=== PATIENT | male | born 1985 ===

== ENCOUNTER 2020-05-23 09:11 | Inpatient (IN) | payer OTHER ==
[~2020-05-23] VITALS: Ht 185.4 cm; Wt 84.1 kg
[2020-05-23] MEDS ORDERED: 0.9% SODIUM CHLORIDE 10 ML SYRINGE IVP PRN (11:30)
[2020-05-23] MEDS ORDERED: ACETAMINOPHEN 325 MG TABLET PO PRN (11:30)
[2020-05-23] MEDS ORDERED: ONDANSETRON HCL 4 MG/2 ML VIAL IVP PRN (17:30)
[2020-05-23] MEDS ORDERED: MAGNESIUM HYDROXIDE SUSPENSION 30 ML UDCUP PO PRN (17:30)
[2020-05-23] MEDS ORDERED: BISACODYL 10 MG RECTAL RECTAL SUPPOSITORY PR PRN (17:30)
[2020-05-23 19:30] VITALS: BP 108/52
[2020-05-23 21:52] LABS: ANION GAP 12 mmol/L (8-16); BASOPHILS % (AUTO) 0.7 % (0.0-2.0); CALCIUM, TOTAL 8.8 mg/dL (8.8-10.5); CARBON DIOXIDE 24 mmol/L (22-29); CHLORIDE 106 mmol/L (98-107); CREATININE 0.77 mg/dL (0.60-1.30); EOSINOPHILS % (AUTO) 1.6 % (1.0-6.0); GLOMERULAR FILTR. RATE CALC > 60 mL/min (>60); GLUCOSE,RANDOM 98 mg/dL (70-110); HEMATOCRIT 46.2 % (41-53); HEMOGLOBIN 15.1 g/dL (13.5-17.5); LYMPHOCYTES # (AUTO) 1.6 K/uL (1.0-4.8); LYMPHOCYTES % (AUTO) 24.9 % (22.0-44.0); MEAN CORPUSCULAR HEMOGLOBIN 32.3 pg (26.0-34.0); MEAN CORPUSCULAR HGB CONC 32.8 G/dL (31.0-37.0); MEAN CORPUSCULAR VOLUME 99 fL (80-100); MONOCYTES # (AUTO) 0.7 K/uL (0.1-1.0); MONOCYTES % (AUTO) 10.6 % (2.0-9.0); NEUTROPHILS % (AUTO) 62.2 % (40.0-70.0); PLATELET COUNT (AUTO) 193 K/uL (150-450); POTASSIUM 4.2 mmol/L (3.5-5.1); RED BLOOD CELL COUNT(AUTO) 4.69 MIL/uL (4.50-5.90); RED CELL DISTRIBUTION WIDTH 14.1 % (11.5-14.5); SODIUM SERUM 142 mmol/L (136-145); UREA NITROGEN, BLOOD 11 mg/dL (7-18)
[2020-05-23 21:56] LABS: ALANINE AMINOTRANSFERASE 23 U/L (12-78); ALBUMIN 3.7 g/dL (3.4-5.0); ALKALINE PHOSPHATASE 69 U/L (46-116); ASPARTATE AMINOTRANSFERASE 18 U/L (15-37); BILIRUBIN,TOTAL 0.6 mg/dL (0.1-1.0); TOTAL PROTEIN, SERUM 6.6 g/dL (6.4-8.2)
[2020-05-24] MEDS: ZOLPIDEM TARTRATE 5 MG TABLET PO PRN ×2 (02:23→20:38)
[2020-05-24 08:37] VITALS: BP 115/64
[2020-05-24 20:40] VITALS: BP 121/71
[2020-05-25] MEDS ORDERED: NICOTINE 21 MG/24 HOUR PATCH TD ONE
[2020-05-25 05:35] VITALS: BP 99/75
[2020-05-25] MEDS: NICOTINE 21 MG/24 HOUR PATCH TD SCH (09:57)
[2020-05-25] MEDS: ACETAMINOPHEN 325 MG TABLET PO PRN (16:35)
[2020-05-25 20:00] VITALS: BP 115/58
[2020-05-26] MEDS: NICOTINE 21 MG/24 HOUR PATCH TD SCH (08:43)
[2020-05-26 10:07] VITALS: BP 123/75
[2020-05-26] MEDS: SERTRALINE HCL 50 MG TABLET PO SCH (14:49)
[2020-05-26 16:00] VITALS: BP 135/89
[2020-05-26 19:40] VITALS: BP 129/72
[2020-05-26] MEDS: ACETAMINOPHEN 325 MG TABLET PO PRN (21:03)
[2020-05-26] MEDS: OLANZapine 5 MG TABLET PO SCH (21:03)
[2020-05-27 08:12] VITALS: BP 124/66
[2020-05-27] MEDS: NICOTINE 21 MG/24 HOUR PATCH TD SCH (09:06)
[2020-05-27] MEDS: SERTRALINE HCL 50 MG TABLET PO SCH (09:12)
[2020-05-27 16:38] VITALS: BP 125/71
[2020-05-27 20:02] VITALS: BP 123/68
[2020-05-27] MEDS: OLANZapine 5 MG TABLET PO SCH (20:15)
[2020-05-27] MEDS: ACETAMINOPHEN 325 MG TABLET PO PRN (20:15)
[2020-05-28 04:45] VITALS: BP 122/67
[2020-05-28 07:44] VITALS: BP 137/72
[2020-05-28] MEDS: SERTRALINE HCL 50 MG TABLET PO SCH (08:03)
[2020-05-28] MEDS: NICOTINE 21 MG/24 HOUR PATCH TD SCH (08:03)
[2020-05-28 15:35] VITALS: BP 123/77
[2020-05-28 20:33] VITALS: BP 132/78
[2020-05-28] MEDS: OLANZapine 5 MG TABLET PO SCH (21:29)
[2020-05-28] MEDS: ACETAMINOPHEN 325 MG TABLET PO PRN (21:39)
[2020-05-29 05:30] VITALS: BP 113/72
[2020-05-29] MEDS: SERTRALINE HCL 50 MG TABLET PO SCH (08:31)
[2020-05-29] MEDS: NICOTINE 21 MG/24 HOUR PATCH TD SCH (08:39)
[2020-05-29 08:44] VITALS: BP 135/65
[2020-05-29 16:25] VITALS: BP 121/84
[2020-05-29] MEDS: OLANZapine 5 MG TABLET PO SCH (20:05)
[2020-05-29 20:09] VITALS: BP 135/72
[2020-05-30 04:59] VITALS: BP 121/76
[2020-05-30] MEDS: SERTRALINE HCL 50 MG TABLET PO SCH (08:21)
[2020-05-30 08:24] VITALS: BP 128/75
[2020-05-30] MEDS: NICOTINE 21 MG/24 HOUR PATCH TD SCH (08:29)
[2020-05-30] MEDS ORDERED: SERT50TA12 PO (14:08)
[2020-05-30] MEDS ORDERED: OLAN5TAB2 PO (14:09)
[2020-05-30 16:29] VITALS: BP 112/59
[2020-05-30 20:29] VITALS: BP 114/64
[2020-05-30] MEDS: OLANZapine 5 MG TABLET PO SCH (20:51)
[2020-05-31 03:18] VITALS: BP 125/66
[2020-05-31 07:40] VITALS: BP 109/73
[2020-05-31] MEDS: SERTRALINE HCL 50 MG TABLET PO SCH (08:01)
[2020-05-31] MEDS: NICOTINE 21 MG/24 HOUR PATCH TD SCH (08:01)
[2020-05-31 16:40] VITALS: BP 125/70
[2020-05-31 20:30] VITALS: BP 120/62
[2020-05-31] MEDS: OLANZapine 5 MG TABLET PO SCH (20:42)
[2020-05-31] MEDS: ACETAMINOPHEN 325 MG TABLET PO PRN (20:45)
[2020-06-01 04:45] VITALS: BP 119/72
[2020-06-01 06:54] LABS: BASOPHILS % (AUTO) 0.6 % (0.0-2.0); EOSINOPHILS % (AUTO) 2.2 % (1.0-6.0); HEMATOCRIT 45.9 % (41-53); HEMOGLOBIN 15.4 g/dL (13.5-17.5); LYMPHOCYTES # (AUTO) 2.7 K/uL (1.0-4.8); LYMPHOCYTES % (AUTO) 40.8 % (22.0-44.0); MEAN CORPUSCULAR HEMOGLOBIN 32.8 pg (26.0-34.0); MEAN CORPUSCULAR HGB CONC 33.5 G/dL (31.0-37.0); MEAN CORPUSCULAR VOLUME 98 fL (80-100); MONOCYTES # (AUTO) 0.7 K/uL (0.1-1.0); MONOCYTES % (AUTO) 10.4 % (2.0-9.0); NEUTROPHILS # (AUTO) 3.1 K/uL (1.8-7.7); PLATELET COUNT (AUTO) 194 K/uL (150-450); RED BLOOD CELL COUNT(AUTO) 4.68 MIL/uL (4.50-5.90); RED CELL DISTRIBUTION WIDTH 13.4 % (11.5-14.5)
[2020-06-01 07:05] LABS: ANION GAP 7 mmol/L (8-16); CALCIUM, TOTAL 8.6 mg/dL (8.8-10.5); CARBON DIOXIDE 28 mmol/L (22-29); CHLORIDE 106 mmol/L (98-107); CREATININE 0.94 mg/dL (0.60-1.30); GLOMERULAR FILTR. RATE CALC > 60 mL/min (>60); GLUCOSE,RANDOM 94 mg/dL (70-110); SODIUM SERUM 141 mmol/L (136-145); UREA NITROGEN, BLOOD 15 mg/dL (7-18)
[2020-06-01 08:24] VITALS: BP 132/68
[2020-06-01] MEDS: SERTRALINE HCL 50 MG TABLET PO SCH (08:46)
[2020-06-01] MEDS: NICOTINE 21 MG/24 HOUR PATCH TD SCH (08:47)
[2020-06-01 16:01] VITALS: BP 124/72
[2020-06-01 19:40] VITALS: BP 108/60
[2020-06-01] MEDS: OLANZapine 5 MG TABLET PO SCH (20:21)
[2020-06-02 04:05] VITALS: BP 120/62
[2020-06-02] MEDS: NICOTINE 21 MG/24 HOUR PATCH TD SCH (07:56)
[2020-06-02] MEDS: SERTRALINE HCL 50 MG TABLET PO SCH (07:56)
[2020-06-02 08:49] VITALS: BP 121/62
== END 2020-06-02 15:50 | DRG 885 ==
LOC: EMS 09:15 → 6S 15:38
PROVIDERS: ADMIT Internal Medicine; ATTEND Hospitalist
DX: F33.2 Major depressive disorder, recurrent severe without psychotic features (principal); R45.851 Suicidal ideations; F17.210 Nicotine dependence, cigarettes, uncomplicated; R05 Cough; F12.90 Cannabis use, unspecified, uncomplicated; Z20.828 Contact with and (suspected) exposure to other viral communicable diseases; Z91.19 Patient's noncompliance with other medical treatment and regimen; Z88.1 Allergy status to other antibiotic agents; Z91.013 Allergy to seafood; Z79.899 Other long term (current) drug therapy
CPT/HCPCS: G0480